=== PATIENT | female | born 1970 | race Caucasian/White ===

== ENCOUNTER 2022-05-25 21:45 | Emergency (ER) | payer SELFPAY ==
[~2022-05-25] VITALS: Ht 160 cm; Wt 63.6 kg
[2022-05-26] MEDS ORDERED: cefTRIAXone 1GM/50ML D5W 50 ML IV ONE (02:15)
[2022-05-26] MEDS ORDERED: metroNIDAZOLE 500MG/100ML 100 ML IV ONE (02:15)
[2022-05-26] MEDS ORDERED: TETANUS-DIPTH-ACEL PERTUSSIS 0.5ML SYR Tdap IM ONE (02:15)
[2022-05-26 09:10] VITALS: BP 108/56
== END 2022-05-26 10:09 | disposition short-term general hospital (02) ==
LOC: EDUNIT# 21:45 → EDBD 21:45 → ER 21:45
DX: S01.01XA Laceration without foreign body of scalp, initial encounter (principal); S61.411A Laceration without foreign body of right hand, initial encounter; S81.812A Laceration without foreign body, left lower leg, initial encounter; S01.352A Open bite of left ear, initial encounter; W54.0XXA Bitten by dog, initial encounter; Y93.89 Activity, other specified; Y92.89 Other specified places as the place of occurrence of the external cause; Y99.8 Other external cause status
CPT/HCPCS: 70450; 70486; 73090; 73130; 73590; 90471; 90715; 96365; 96368; 99285; J0696; J3490